=== PATIENT | male | born 1990 | race Caucasian/White ===

== ENCOUNTER 2024-10-13 13:45 | Emergency (ER) | payer OTHER, SELFPAY ==
[2024-10-13 13:47] VITALS: BP 131/76
--- NOTE | 2024-10-13 14:29 | ED.GENMED ---
History of Present Illness
<Deyanira Bliss BAGGAGE AND MAIL AGENT - Last Filed: 10/13/24 16:31>
General
Chief Complaint: Head Injury
Source: patient
Exam Limitations: none
Time Seen by Provider: 10/13/24 14:09
Nursing documentation reviewed up to this point in time: agreed with
History of Present Illness
History of Present Illness:
33-year-old male with no significant past medical history states he was out in the street by his house drinking with friends last night and fell down on the street after consuming alcohol, specifically whiskey. The patient does not recall the fall
itself or the events immediately preceding the incident, stating, 'I don't remember falling at all.' He later woke up at his friend�s house without any recollection of the events after his fall.
Upon regaining consciousness, the patient noted a severe headache localized to the back of his head, where there is a scrape, posterior headache 8/10 on a scale of 0 to 10. Vomited once this morning at around 7 a.m. has taken no medication for H/A.
Denies chest pain, difficulty breathing, or abdominal pain or any other injury from the fall.
The patient denies experiencing dizziness but mentioned feeling lightheaded. Last tetanus shot was over five years ago.
Past History
<Deyanira Bliss, B[employer] MAIL AGENT - Last Filed: 10/13/24 16:31>
Past History
ED Past Medical History: None
ED Past Surgical History: None
Social History
Tobacco: Smoker
Alcohol: Occasional
Personal:
Living: with family
Employment: Employed
Review of Systems
<Deyanira Bliss [employer] MA[employer]ENT - Last Filed: 10/13/24 16:31>
Review of Systems
Allergies reviewed?: Yes
All Other Systems: ROS reviewed and negative except as documented in HPI and ROS
Respiratory: Denies trouble breathing
Cardiac: Denies chest pain
ABD/GI: Denies nausea or vomiting (one episode this am. none since)
: Denies incontinence
Musculoskeletal: Denies neck pain or back pain
Skin: Reports other
Neurological: Reports headache; Denies dizzy, weakness or numbness
Phy Exam
<Deyanira Bliss, [employer] MAIL AGENT - Last Filed: 10/13/24 16:31>
Physical Exam
Physical Exam:
GENERAL: No acute distress. A&Ox3.
CONSTITUTIONAL: Afebrile.
EYES: clear, conjunctivae normal
ENMT: moist mucus membranes, Pharynx nl
RESPIRATORY: Regular respirations, nonlabored, lungs clear.
CARDIOVASCULAR: Regular rate and rhythm, no murmurs, no rubs.
GI: Soft, nontender, normal BS
MUSCULOSKELETAL: Moves with ease. Well perfused.
SKIN: Warm, dry, pink, superficial clean abrasion base of skull
PSYCH: Normal mood and affect. Well kept, interactive and appropriate
NEUROLOGIC: Awake, alert and oriented. CN II through XII intact. Ambulates well with steady gait. No focal neurological deficits no spinal bony tenderness.
Course
<Deyanira Bliss, [employer] MAIL AGENT - Last Filed: 10/13/24 16:31>
Orders/Labs/Results
Orders:
Orders
10/13/24 13:55
CT Cervical Spine W/o Iv Contr Urgent
Comment:
Reason For Exam: fall
CT Head W/o Iv Contrast Urgent
Comment:
Reason For Exam: fall
10/13/24 14:28
Acetaminophen [Tylenol] 650 mg PO NOW STA
10/13/24 14:29
Tetanus/Diphth/Acelpertussis [Adacel] 0.5 ml IM .ONCE ONE
10/13/24 15:58
Complete Blood Count/With Diff Urgent
Comprehensive Metabolic Panel Urgent
Abnormal Lab Results
10/13/24
15:58
WBC 13.2 H 10^3/uL
(4.8-10.8)
Absolute Neuts (auto) 11.2 H 10^3/uL
(1.4-6.5)
Absolute Lymphs (auto) 1.0 L 10^3/uL
(1.2-3.4)
Absolute Monos (auto) 0.9 H 10^3/uL
(0.1-0.6)
Neutrophils % 85.4 H %
(42.2-75.2)
Lymphocytes % 7.6 L %
(20.5-51.1)
Glucose 121 H mg/dl
(70-99)
10/13/24 15:58
10/13/24 15:58
Vital Signs
Initial and Last Documented VS:
Initial Vital Signs
Temp Pulse Resp BP Pulse Ox
98.1 F 100 16 131/76 98
10/13/24 13:47 10/13/24 13:47 10/13/24 13:47 10/13/24 13:47 10/13/24 13:47
Last Documented Vital Signs
Temp Pulse Resp BP Pulse Ox
98.1 F 85 16 119/68 100
10/13/24 13:47 10/13/24 16:55 10/13/24 16:55 10/13/24 16:55 10/13/24 16:55
Chainman consulted with Physician
Chainman consulted with physician?: Yes (Peg)
<Andrea Ruvalcaba, DO - Last Filed: 10/13/24 22:00>
Orders/Labs/Results
Orders:
Orders
10/13/24 13:[address]
CT Cervical Spine W/o Iv Contr Urgent
Comment:
Reason For Exam: fall
CT Head W/o Iv Contrast Urgent
Comment:
Reason For Exam: fall
10/13/24 14:28
Acetaminophen [Tylenol] 650 mg PO NOW STA
10/13/24 14:29
Tetanus/Diphth/Acelpertussis [Adacel] 0.5 ml IM .ONCE ONE
10/13/24 15:58
Complete Blood Count/With Diff Urgent
Comprehensive Metabolic Panel Urgent
Abnormal Lab Results
10/13/24
15:58
WBC 13.2 H 10^3/uL
(4.8-10.8)
Absolute Neuts (auto) 11.2 H 10^3/uL
(1.4-6.5)
Absolute Lymphs (auto) 1.0 L 10^3/uL
(1.2-3.4)
Absolute Monos (auto) 0.9 H 10^3/uL
(0.1-0.6)
Neutrophils % 85.4 H %
(42.2-75.2)
Lymphocytes % 7.6 L %
(20.5-51.1)
Glucose 121 H mg/dl
(70-99)
10/13/24 15:58
10/13/24 15:58
Vital Signs
Initial and Last Documented VS:
Initial Vital Signs
Temp Pulse Resp BP Pulse Ox
98.1 F 100 16 131/76 98
10/13/24 13:47 10/13/24 13:47 10/13/24 13:47 10/13/24 13:47 10/13/24 13:47
Last Documented Vital Signs
Temp Pulse Resp BP Pulse Ox
98.1 F 85 16 119/68 100
10/13/24 13:47 10/13/24 16:55 10/13/24 16:55 10/13/24 16:55 10/13/24 16:55
<Deyanira Bliss, [employer] MAIL AGENT - Last Filed: 10/13/24 16:31>
MDM/Problems Addressed
Differential Diagnosis Includes:
The Differential Diagnosis includes, in no particular order and is not limited to:
- Concussion
- Intracranial hemorrhage
- Alcohol intoxication
- Skull fracture
- Post-traumatic headache
- Substance-induced loss of consciousness
- Syncope
- Acute alcohol withdrawal
- Subarachnoid hemorrhage
- Cervical spine injury
MDM/Problems Addressed:
33-year-old male with no significant past medical history states he was out in the street by his house drinking with friends last night and fell down on the street after consuming alcohol, specifically whiskey. The patient does not recall the fall
itself or the events immediately preceding the incident, stating, 'I don't remember falling at all.' He later woke up at his friend�s house without any recollection of the events after his fall.
Upon regaining consciousness, the patient noted a severe headache localized to the back of his head, where there is a scrape, posterior headache 8/10 on a scale of 0 to 10. Vomited once this morning at around 7 a.m. has taken no medication for H/A.
Denies chest pain, difficulty breathing, or abdominal pain or any other injury from the fall.
The patient denies experiencing dizziness but mentioned feeling lightheaded. Last tetanus shot was over five years ago.
Normal neuro exam
GCS 15
3:45 PM:
Head CT radiology report read: IMPRESSION:
Small foci of hemorrhage within the inferior frontal lobes bilaterally, compatible with cerebral hemorrhagic contusions.
There is a nondisplaced fracture involving the right paramedian posterior occipital lobe, extending to the base of the calvarium.
Spoke with Dr. Patrick at [facility] trauma center who will accept the patient.
Patient remained stable, at bedside, agrees with plan
Dr. Ruvalcaba in to evaluate pt.
<Deyanira Bliss NP - Last Filed: 10/13/24 16:31>
*Pulse Oximetry
SaO2: 98
Oxygen Mode of Delivery: Room air
Patient hypoxic: no
*Critical Care Note
Total Time (30-74mins, 75-104mins- exclusive of procedures): Not Applicable
<Andrea Ruvalcaba DO - Last Filed: 10/13/24 22:00>
*Critical Care Note
Total Time (30-74mins, 75-104mins- exclusive of procedures): 35 minutes
ED Attending Note
<Deyanira Bliss [employer]IL AGENT - Last Filed: 10/13/24 16:31>
-
Portions of this chart may have been created with voice recognition software.� Occasional wrong word or��sound alike� substitutions may have occurred due to the inherent limitations of voice recognition software.
<Andrea Ruvalcaba DO - Last Filed: 10/13/24 22:00>
ED Attending Note
Patient seen and examined by attending physician: Yes
I performed the substantive portion of visit, reviewed & personally made and approve the management plan that is documented in note by myself or RUDY.: Yes
ED Attending Note:
33-year-old male fell while drinking alcohol. Given persistence of symptoms he presented today for headache. CT shows intracranial hemorrhage and frontal contusions. He is awake and alert with a nonfocal motor exam. Transfer to [facility]
[place] trauma.
Discharge Plan
Departure
Patient Disposition: Acute Care Hospital
Date of Disposition: 10/13/24
Time of Disposition: 15:57
Condition: Serious
Discharge Problem:
Focal hemorrhagic contusion of cerebrum, Closed skull fracture, Fall
Referrals:
UNKNOWN - PT DOES,NOT KNOW [Family Provider]
Hospital Transfer
Other hospital: [facility]
I certify that the patient requires transfer: Yes
Discussed case with accepting physician: Dr. Patrick
Reason for transfer: higher level of care and specialties available
Interventions
Interventions:
*Risk Screen - Suicide Last Done: 10/13/24 13:47
*General Assessment Last Done: 10/13/24 15:55
*Neglect/Abuse Screening Last Done: 10/13/24 13:47
*ED- Fall Risk Assessment Last Done: 10/13/24 15:46
*ED COVID-19 Vaccine History Last Done: 10/13/24 15:55
*Nursing Disposition Last Done: 10/13/24 17:10
ED- Neurological Assessment Last Done: 10/13/24 15:55
ED-Skin Assessment Last Done: 10/13/24 13:50
Discharge Date and Time
Discharge Date/Time: 10/13/24 17:13
Print Language: [email or web address]
[2024-10-13] MEDS: ADACEL 0.5 ML IM (14:35)
[2024-10-13] MEDS: TYLENOL 650 MG PO (14:35)
[2024-10-13 15:55] VITALS: BMI 25.6
[2024-10-13 15:56] VITALS: BP 121/71
[2024-10-13 16:04] LABS: Hematocrit 42.3 % (39.0-52.0); Hemoglobin 14.5 g/dL (13.0-18.0); Mean Corp Hgb Conc. 34.3 g/dL (33.0-37.0); Mean Corpuscular Volume 85.3 fL (80.0-94.0); Nucleated Red Blood Cells % 0 % (-); Platelet Count 214 10^3/uL (130-400); Red Cell Dist. Width 12.8 % (11.5-14.5)
[2024-10-13 16:23] LABS: ALT (SGPT) 27 U/L (0-50); AST (SGOT) 33 U/L (17-59); Albumin 4.8 g/dl (3.5-5.0); Alkaline Phosphatase 43 U/L (38-126); Blood Urea Nitrogen 9 mg/dl (9-20); Calcium 9.5 mg/dl (8.4-10.2); Carbon Dioxide 26 mmol/L (22-30); Chloride 107 mmol/L (98-107); Estimated Creatinine Clearance 120 ml/min; Glucose 121 mg/dl (70-99); Potassium 4.5 mmol/L (3.5-5.1); Sodium 140 mmol/L (135-145); Total Protein 8.1 g/dl (6.3-8.2); eGFR > 60.00
[2024-10-13 16:55] VITALS: BP 119/68
== END 2024-10-13 17:13 | disposition short-term general hospital (02) ==
LOC: EMR 13:45
PROVIDERS: EMERGENCY PHYSICIAN Emergency Medicine
DX: S02.11GA Other fracture of occiput, right side, initial encounter for closed fracture (principal); S06.33AA Contusion and laceration of cerebrum, unspecified, with loss of consciousness status unknown, initial encounter; S06.34AA Traumatic hemorrhage of right cerebrum with loss of consciousness status unknown, initial encounter; S06.35AA Traumatic hemorrhage of left cerebrum with loss of consciousness status unknown, initial encounter; W18.39XA Other fall on same level, initial encounter; Y92.410 Unspecified street and highway as the place of occurrence of the external cause; F17.200 Nicotine dependence, unspecified, uncomplicated; Z23 Encounter for immunization
CPT/HCPCS: 99285; 90471; 70450; 72125; 80053; 85025; 90715